=== PATIENT | male | born 1965 | race Caucasian/White ===

== ENCOUNTER 2017-07-17 15:45 | Inpatient (IN) | payer BC ==
[2017-07-17] MEDS ORDERED: Bupivacaine/Epinephrine 0.25% 30 ML VIAL ONE (16:02)
[2017-07-17] MEDS ORDERED: Fentanyl 100 MCG/2 ML VIAL ONE ×4 (16:04→18:13)
[2017-07-17] MEDS ORDERED: Midazolam HCl 2 mg/2 ml Vial ONE (16:24)
[2017-07-17] MEDS ORDERED: Sodium Chloride 0.9% 100 ML ONE (16:30)
[2017-07-17] MEDS ORDERED: Ondansetron HCl/PF 4 MG/2 ML Vial ONE (16:49)
[2017-07-17] MEDS ORDERED: Lidocaine 1% PF 5 ML VIAL ONE (16:49)
[2017-07-17] MEDS ORDERED: Ketorolac Tromethamine 30 MG/ML VIAL ONE (16:49)
[2017-07-17] MEDS ORDERED: Succinylcholine Chloride 20 MG/ML 10 ml SYRINGE FS ONE (16:49)
[2017-07-17] MEDS ORDERED: Propofol 200 MG/20 ML VIAL ONE (16:49)
[2017-07-17] MEDS ORDERED: Glycopyrrolate 0.2 MG/ML 5 ML SYRINGE ONE (16:49)
[2017-07-17] MEDS ORDERED: Meperidine HCl/PF 25 MG/ML VIAL SLOW IVP PRN (17:25)
[2017-07-17] MEDS ORDERED: Morphine Sulfate 2 MG/ML SYRINGE SLOW IVP PRN ×2 (17:25→17:41)
[2017-07-17] MEDS ORDERED: HYDROmorphone 2 MG/ML VIAL SLOW IVP PRN (17:25)
[2017-07-17] MEDS ORDERED: Promethazine HCl 25 MG/ML VIAL SLOW IVP PRN (17:25)
[2017-07-17] MEDS ORDERED: Promethazine HCl 25 MG/ML VIAL IM PRN (17:41)
[2017-07-17] MEDS ORDERED: Dextrose 50% Abboject 50 ML SYRINGE SLOW IVP PRN (17:41)
[2017-07-17] MEDS ORDERED: Dextrose 5% in Water 1,000 ML IV PRN (17:41)
[2017-07-17] MEDS ORDERED: Ondansetron HCl/PF 4 MG/2 ML Vial IVP PRN (17:41)
[2017-07-17] MEDS ORDERED: HYDROcodone/Acetaminophen 10/325 mg Tablet PO PRN ×2 (17:41)
[2017-07-17] MEDS ORDERED: Piperacillin/Tazobactam 3.375 GM in Sodium Chloride 0.9% 100 ML IVPB SCH (18:00)
--- NOTE | 2017-07-17 18:36 | OP ---
PREOPERATIVE DIAGNOSIS: Acute appendicitis. SURGEON: Karan Storey M.D. PROCEDURE PERFORMED: Laparoscopic appendectomy. INDICATIONS: The patient is a 52-year-old male with a 36-hour history of central abdominal pain, wh ich became more right lower quadrant associated with low grade fever and local tenderness. CT scan showed appendicitis. FINDINGS: Acute suppurative appendicitis with microperforation. DESCRIPTION OF THE PROCEDURE: After informed consent was obtained, the patient was taken to the ope rating room and given general endotracheal anesthesia. He was placed in the supine position. His a bdomen was prepped and draped in the usual fashion. Local anesthesia infiltrated subcutaneously and deep, a subumbilical incision was performed. Subcu divided sharply. The fascia grasped and two st ay sutures of 0 Vicryl placed in either side of midline. Midline incised. Digital palpation reveal ed no local adhesions. A blunt 10 or 12 mm trocar inserted. Pneumoperitoneum was created to a pres sure of 15 mmHg. A 0-degree laparoscope inserted. Under direct vision, two 5-mm ports were placed, one suprapubic and one right lateral abdomen. The appendix was found. Mesoappendix divided utiliz ing the LigaSure. There was a little bit of purulent fluid there. The base of the appendix was div ided utilizing the linear 45 mm white load stapler. The appendix was placed in an Endosac and remov ed from the abdomen in the Endosac. The abdomen was thoroughly irrigated and irrigation fluid remov ed. Trocars and retractors removed. It was a minimal amount of purulent fluid and a drain was not placed. Trocars and retractors removed. The fascia closed with interrupted 0 Vicryl suture. The s kin closed with interrupted 4-0 Rapide. Dermabond applied. The patient tolerated the procedure wel l and transferred to recovery in good condition. We will keep him overnight for further IV antibiot ics.
[2017-07-17] MEDS: Piperacillin/Tazobactam 3.375 GM in Sodium Chloride 0.9% 100 ML IVPB SCH (20:12)
[2017-07-17] MEDS: D5 1/2 NS w/20 mEq KCL 1,000 ML IV SCH (20:13)
[2017-07-17] MEDS: Famotidine 20 MG TAB PO SCH (20:19)
[2017-07-17] MEDS ORDERED: Famotidine/PF 20 mg/2ml Vial SLOW IVP SCH (21:00)
[2017-07-17] MEDS: metroNIDAZOLE 500 MG in Premix Bag 1 BAG IVPB SCH (21:22)
[2017-07-17 21:41] VITALS: BMI 26.6
[2017-07-18] MEDS: Piperacillin/Tazobactam 3.375 GM in Sodium Chloride 0.9% 100 ML IVPB SCH ×2 (02:08→07:46)
[2017-07-18] MEDS: D5 1/2 NS w/20 mEq KCL 1,000 ML IV SCH (04:02)
[2017-07-18] MEDS: metroNIDAZOLE 500 MG in Premix Bag 1 BAG IVPB SCH (05:24)
[2017-07-18 05:55] LABS: #Lymphocytes 0.6 thou/uL (1.20-3.40); #Monocytes 0.7 thou/uL (0.11-0.59); #Neutrophils 11.9 thou/uL (1.40-6.50); %Eosinophils 0.1 % (0.0-10.0); %Lymphocytes 4.6 % (21.0-51.0); Hematocrit 36.9 % (42.0-52.0); Mean Platelet Volume 7.5 fL (7.4-10.4); Red Blood Cell (RBC) Count 3.86 mill/uL (4.70-6.10); White Blood Cell (WBC) Count 13.2 thou/uL (4.8-10.8)
[2017-07-18 06:11] LABS: Anion Gap 9 mmol/L (10-20); BUN (Urea Nitrogen) 10 mg/dL (8.4-25.7); Calc. Creatinine Clearance 97 mL/min (70-130); Calcium 8.6 mg/dL (7.8-10.44); Carbon Dioxide 25 mmol/L (22-29); Chloride 103 mmol/L (98-107); Estimated GFR-MDRD 81
[2017-07-18] MEDS: Famotidine 20 MG TAB PO SCH (07:47)
[2017-07-18] MEDS ORDERED: Enoxaparin Sodium 40 MG/0.4 ML SYRINGE SC SCH (09:00)
[2017-07-18 09:11] VITALS: BP 113/71; TEMP 97.9
--- NOTE | 2017-07-18 12:47 | DIS ---
DISCHARGE DIAGNOSIS: Acute appendicitis. PROCEDURES DURING ADMISSION: Laparoscopic appendectomy. HOSPITAL COURSE: The patient was admitted, taken to the operating room, underwent laparoscopic appe ndectomy. He was found to have microperforation with a small bit of purulent fluid. This was remov ed, irrigated, and he was kept overnight for antibiotics. He is feeling fine now. He is afebrile. He is tolerating a diet. He is discharged home on hydrocodone and doxycycline. He will follow up with me in 2 weeks.
== END 2017-07-18 10:38 | disposition home or self-care (01) | DRG 340 ==
LOC: SDC 15:45 → SJJU 18:50
PROVIDERS: ADMIT Surgery; ATTEND Surgery
PROC: 0DTJ4ZZ Resection of Appendix, Percutaneous Endoscopic Approach (ICD-10-PCS; principal; 2017-07-17)
DX: K35.3 Acute appendicitis with localized peritonitis (principal)
CPT/HCPCS: 36415; 80048; 85025; 88304; J0131; J0694; J1650; J1885; J2001; J2250; J2270; J2405; J2543; J2704; J3010; J7050; S0028